=== PATIENT | female | born 1980 | race Caucasian/White ===

== ENCOUNTER 2018-11-02 12:59 | Emergency (ER) | payer MEDICARE, MEDICAID ==
[2018-11-02 14:10] LABS: ADD MAN DIFF? NO
[2018-11-02] MEDS: ONDANSETRON 4 MG INJ IV (14:13)
[2018-11-02] MEDS: LABETALOL HCL 20MG INJ IV (14:13)
[2018-11-02 14:15] LABS: BASOPHILS % 0.3 % (0.0-2.0); EOSINOPHILS # 0.2 10^3/ul (0.0-0.5); EOSINOPHILS % 1.3 % (0.0-7.0); HEMATOCRIT 33.1 % (37.0-47.0); LYMPHOCYTES # 1.4 10^3/ul (0.8-2.9); LYMPHOCYTES % 11.9 % (15.0-51.0); MEAN CORPUSCULAR HEMOGLOBIN 33.7 pg (29.0-33.0); MEAN CORPUSCULAR HGB CONC 33.2 g/dl (32.0-37.0); MEAN CORPUSCULAR VOLUME 101.5 fl (82.0-101.0); MEAN PLATELET VOLUME 10.5 fl (7.4-10.4); MONOCYTE # 0.7 10^3/ul (0.3-0.9); MONOCYTES % 6.1 % (0.0-11.0); NEUTROPHIL # 9.4 10^3/ul (1.6-7.5); PLATELET COUNT 236 10^3/UL (140-415); RED BLOOD COUNT 3.26 10^6/ul (4.20-5.40); RED CELL DISTRIBUTION WIDTH 13.7 % (11.5-14.5)
[2018-11-02 14:15] LABS: WHITE BLOOD COUNT 11.7 10^3/ul (4.8-10.8)
[2018-11-02] MEDS: ONDANSETRON (ODT) 4 MG TAB ODT (14:19)
[2018-11-02] MEDS: NICARDipine HCL 30 MG CAPSULE PO (14:19)
[2018-11-02 14:36] LABS: ANION GAP 10 (5-13); BLOOD UREA NITROGEN 40 mg/dl (7-20); CALCIUM 9.5 mg/dl (8.4-10.2); CARBON DIOXIDE 32 mmol/L (21-31); CHLORIDE 94 mmol/L (97-110); Estimated GFR 6 mL/min (>60); GLUCOSE 170 mg/dl (70-220); POTASSIUM 4.7 mmol/L (3.5-5.1); SODIUM 136 mmol/L (135-144)
[2018-11-02] MEDS: ACETAMINOPHEN 325 MG TAB PO (14:43)
[2018-11-02 14:48] LABS: TROPONIN-I < 0.012 ng/ml (0.000-0.120)
[2018-11-02 15:27] LABS: INR 0.95; PROTIME 12.8 Sec (11.9-14.9)
[2018-11-02 15:28] LABS: PARTIAL THROMBOPLASTIN TIME 28.5 Sec (23.0-35.0)
== END 2018-11-02 16:19 | disposition home or self-care (01) ==
LOC: E/R 12:59
DX: I10 Essential (primary) hypertension (principal); R11.2 Nausea with vomiting, unspecified; R51 Headache; E11.9 Type 2 diabetes mellitus without complications; N19 Unspecified kidney failure; Z79.4 Long term (current) use of insulin; Z99.2 Dependence on renal dialysis
CPT/HCPCS: 36415; 70450; 80048; 84484; 84703; 85025; 85610; 85730; 93005; 96374; 96375; 99285-25